=== PATIENT | male | born 1990 | race Two or more races ===

== ENCOUNTER 2024-08-08 16:15 | Outpatient (CLI) | payer OTHER, SELFPAY ==
--- NOTE | ~2024-08-08 | XR_ITS ---
XR lumbar spine min 4V 08/08/2024 16:35 Indication: Low back pain Procedure: 5 views lumbar spine Comparison: No prior studies for comparison. Findings: Vertebral body heights are maintained. No fracture or traumatic malalignment. No evidence f or spondylolisthesis. There is disc narrowing at L3-4 and L4-5. Pedicles intact. Mild dextrocurvature of the lumbar spine. Impression: 1: Mild lumbar spondylosis. Reviewed, dictated and finalized at location B. [employer] SE[employer] Impression: 1: Mild lumbar spondylosis.
== END 2024-08-08 16:16 | disposition home or self-care (01) ==
LOC: GOSHIMG 16:16
PROVIDERS: PCP Family Medicine; Visit Provider Family Medicine
DX: M47.816 Spondylosis without myelopathy or radiculopathy, lumbar region (principal)
CPT/HCPCS: 72110